=== PATIENT | female | born 1945 | race Caucasian/White ===

== ENCOUNTER 2022-01-22 14:27 | Outpatient (CLI) | payer MEDICARE | END 2022-01-22 14:28 | disposition home or self-care (01) | LOC: CSHMAMMO 14:27 | PROVIDERS: ATTEND Family Medicine | DX: Z12.31 Encounter for screening mammogram for malignant neoplasm of breast (principal); Z80.3 Family history of malignant neoplasm of breast | CPT/HCPCS: 77063; 77067 ==

== ENCOUNTER 2024-03-29 10:08 | Outpatient (CLI) | payer MEDICARE | END 2024-03-29 10:09 | disposition home or self-care (01) | LOC: CSHMAMMO 10:08 | PROVIDERS: ATTEND Family Medicine | DX: E28.39 Other primary ovarian failure (principal); Z78.0 Asymptomatic menopausal state; M81.0 Age-related osteoporosis without current pathological fracture; M85.89 Other specified disorders of bone density and structure, multiple sites | CPT/HCPCS: 77080 ==